=== PATIENT | female | born 1970 | race Caucasian/White ===

== ENCOUNTER 2018-07-01 21:00 | Emergency (ER) | payer OTHER ==
[2018-07-01 21:08] VITALS: BP 123/77; PULSE 92; TEMP 98; BMI 19.7
--- NOTE | 2018-07-01 21:13 | PDOC ---
Rapid Medical Evaluation Chief Complaint: Injury Time Seen by Provider: 07/01/18 21:09 Medical Evaluation: Allergies Allergy/AdvReac Type Severity Reaction Status Date / Time No Known Drug Allergies Allergy Verified 07/01/18 21:07 Pork/Porcine Containing Allergy Itching Verified 07/01/18 21:07 Products Vital Signs Temp Pulse Resp BP Pulse Ox 98.0 F 92 H 18 123/77 98 07/01/18 21:05 07/01/18 21:05 07/01/18 21:05 07/01/18 21:05 07/01/18 21:05 07/01/18 21:09 complain: Patient with pre-diabetes present with complains of right middle finger pains after finger hit by window when she tried to close window and came down on her fingers at work this afternoon. report numbness and tingling sensation in right middle finger . report taking motin 600mg for pain exam: moderate tenderness and swelling to right middle finger with ecchymosis to distal phalange of right middle finger order: x-rays of right middle finger f/u patient will proceed to ED for further evaluation Discharge Disposition - Diagnosis Finger contusion Qualifiers: Encounter type: initial encounter Finger: middle finger Damage to nail status: without damage Laterality: left Qualified Code(s): S60.032A - Contusion of left middle finger without damage to nail, initial encounter - Referrals - Patient Instructions - Post Discharge Activity
--- NOTE | 2018-07-01 22:27 | PDOC ---
History of Present Illness - General Chief Complaint: Injury Stated Complaint: INJURY Time Seen by Provider: 07/01/18 21:09 - History of Present Illness Initial Comments: 47-year-old female with history of acid reflux and prediabetes presents for evaluation of right middle finger pain. She states she was cleaning a window when the window fell down on the tip of her right middle finger she complains of localized pain to the area without any other associated symptoms. 07/01/18 22:24 Past History - Past Medical History Allergies/Adverse Reactions: Allergies Allergy/AdvReac Type Severity Reaction Status Date / Time No Known Drug Allergies Allergy Verified 07/01/18 21:07 Pork/Porcine Containing Allergy Itching Verified 07/01/18 21:07 Products Home Medications: Ambulatory Orders Naproxen [Naprosyn] 500 mg PO BID PRN #20 tablet 03/25/16 Asthma: No Cancer: No Cardiac Disorders: No COPD: No Diabetes: No HTN: No Seizures: No Thyroid Disease: No - Surgical History Abdominal Surgery: Yes (gall bladder stent) - Immunization History Td Vaccination: (unknown) Immunization Up to Date: (unknown) - Suicide/Smoking/Psychosocial Hx Smoking Status: No Smoking History: Never smoked Years of Tobacco Use: 0 Have you smoked in the past 12 months: No Number of Cigarettes Smoked Daily: 0 Cigars Per Day: 0 Hx Alcohol Use: No Drug/Substance Use Hx: No Hx Substance Use Treatment: No Review of Systems - Review of Systems Musculoskeletal: Yes: See HPI All Other Systems: Reviewed and Negative *Physical Exam - Vital Signs Last Vital Signs Temp Pulse Resp BP Pulse Ox 98.0 F 92 H 18 123/77 98 07/01/18 21:05 07/01/18 21:05 07/01/18 21:05 07/01/18 21:05 07/01/18 21:05 - Physical Exam Comments: Right middle finger is swollen at the tip with a subungual hematoma about 15% of the nail. FDS and FDP work independently. There is appropriate tenderness at the distal phalanx. There are no gross sensorimotor deficits. She is neurovascular intact. 07/01/18 22:24 Medical Decision Making - Medical Decision Making There appears to be a small kacey fracture at the right distal phalanx of the third finger. 07/01/18 22:25 *DC/Admit/Observation/Transfer Diagnosis at time of Disposition: Fracture of distal phalanx of finger of right hand Diagnosis at time of Disposition: (Ruled Out): Finger contusion - Discharge Dispostion Disposition: HOME Condition at time of disposition: Stable Decision to Admit order: No - Referrals Referrals: Lidia Mohamud [Primary Care Provider] - Jacek Dooley MD [Staff Physician] - - Patient Instructions Printed Discharge Instructions: Finger Fracture, DI for Finger Fracture Additional Instructions: Please use a splint as directed. He may remove it to wash her hands other than that you eat to keep it in place until you are seen by hand surgery. Follow-up with hand surgery in the next 1-2 days for further evaluation and treatment options. Return to the emergency room for symptoms worsening or that go unresolved. Please do not take any Motrin for pain as this will upset her stomach only take Tylenol at this point - Post Discharge Activity
== END 2018-07-01 22:37 | disposition home or self-care (01) ==
LOC: JERFT 21:00
DX: S60.032A Contusion of left middle finger without damage to nail, initial encounter (principal); W20.8XXA Other cause of strike by thrown, projected or falling object, initial encounter; Y93.89 Activity, other specified; Y92.9 Unspecified place or not applicable; Y99.0 Civilian activity done for income or pay
CPT/HCPCS: 73140-TC-RT-FY; 99281-25

== ENCOUNTER 2019-02-13 13:48 | Emergency (ER) | payer OTHER ==
[2019-02-13 14:04] VITALS: BP 134/92; PULSE 82; TEMP 98.1; BMI 19.7
[2019-02-13 15:56] LABS: PH,URINE 5.5 (5.0-8.0); URINE APPEARANCE CLEAR; URINE BILIRUBIN NEGATIVE (<2.0 mg/dL); URINE COLOR YELLOW; URINE GLUCOSE (UA) NEGATIVE (NEGATIVE); URINE KETONE NEGATIVE (NEGATIVE); URINE LEUK ESTERASE NEGATIVE (NEGATIVE); URINE NITRITE NEGATIVE (NEGATIVE); URINE PROTEIN NEGATIVE (NEGATIVE); URINE UROBILINOGEN 0.2 mg/dL (0.2-1.0)
[2019-02-13 16:33] LABS: HCG,QUALITATIVE URINE NEGATIVE
--- NOTE | 2019-02-13 16:55 | PDOC ---
History of Present Illness - General Chief Complaint: Pain Stated Complaint: LT ABD PAIN Time Seen by Provider: 02/13/19 15:18 History Source: Patient Exam Limitations: Clinical Condition - History of Present Illness Initial Comments: 02/13/19 13:28 Patient with ovarian cyst and no significant PMhx present with complains of 3 weeks h/o left pelvic pains which has been worsening in the last week. Patient report seeing hy [facility] [employer] 4 days ago for symptoms and bloodwork was done by [facility] [employer] and bedside U/S done by shaker screen operator and was told she will be contacted about results but hasn't received any follow-up call from office and was not given any medication for pain so she came to ED. Denies dysuria, urinary frequency or vaginal discharge. Report LMP 3 weeks ago. Denies N/V. Denies any other symptoms. Timing/Duration: other (3 weeks) Past History - Past Medical History Allergies/Adverse Reactions: Allergies Allergy/AdvReac Type Severity Reaction Status Date / Time No Known Drug Allergies Allergy Verified 02/13/19 14:04 Pork/Porcine Containing Allergy Itching Verified 02/13/19 14:04 Products Home Medications: Ambulatory Orders RX: Ibuprofen 800 mg PO Q8H PRN #20 tablet 02/13/19 Asthma: No Cancer: No Cardiac Disorders: No COPD: No Diabetes: No HTN: No Seizures: No Thyroid Disease: No - Surgical History Abdominal Surgery: Yes (gall bladder stent) - Immunization History Td Vaccination: (unknown) Immunization Up to Date: (unknown) - Suicide/Smoking/Psychosocial Hx Smoking Status: No Smoking History: Never smoked Years of Tobacco Use: 0 Have you smoked in the past 12 months: No Number of Cigarettes Smoked Daily: 0 Cigars Per Day: 0 Information on smoking cessation initiated: No Hx Alcohol Use: No Drug/Substance Use Hx: No Hx Substance Use Treatment: No Review of Systems - Review of Systems Able to Perform ROS?: Yes Is the patient limited Georgian proficient: No Constitutional: No: Symptoms Reported, Weakness HEENTM: No: Symptoms Reported Respiratory: No: Symptoms reported Cardiac (ROS): No: Symptoms Reported ABD/GI: Yes: Abdominal cramping (left pelvic pain). No: Symptoms Reported, Nausea, Vomiting : Yes: See HPI, Pain (left pelvic pain). No: Burning, Dysuria, Discharge, Frequency, Flank Pain, Urgency Integumentary: No: Symptoms Reported Neurological: No: Numbness, Paresthesia, Weakness All Other Systems: Reviewed and Negative *Physical Exam - Vital Signs Last Vital Signs Temp Pulse Resp BP Pulse Ox 98.1 F 82 17 134/92 100 02/13/19 14:02 02/13/19 14:02 02/13/19 14:02 02/13/19 14:02 02/13/19 14:02 - Physical Exam General Appearance: Yes: Nourished, Appropriately Dressed. No: Apparent Distress HEENT: positive: Normal ENT Inspection Neck: positive: Supple Respiratory/Chest: positive: Normal Breath Sounds. negative: Respiratory Distress, Accessory Muscle Use Cardiovascular: positive: Regular Rhythm, Regular Rate Female Pelvic Exam: positive: normal external exam, cervical os closed, normal adnexa, normal size ovaries. negative: CMT, discharge, lesions, Bartholin mass , adnexal tenderness, vaginal bleeding Gastrointestinal/Abdominal: positive: Flat. negative: Soft Musculoskeletal: positive: Normal Inspection Extremity: positive: Normal Inspection Integumentary: positive: Normal Color Neurologic: positive: Fully Oriented, Alert, Normal Response Moderate Sedation - Procedure Monitoring Vital Signs: Procedure Monitoring Vital Signs Temperature 98.1 F 02/13/19 14:02 Pulse Rate 82 02/13/19 14:02 Respiratory Rate 17 02/13/19 14:02 Blood Pressure 134/92 02/13/19 14:02 O2 Sat by Pulse Oximetry (%) 100 02/13/19 14:02 ED Treatment Course - LABORATORY CBC & Chemistry Diagram: 02/13/19 16:58 02/13/19 16:58 - ADDITIONAL ORDERS Additional order review: Laboratory Results 02/13/19 15:37 Urine Color Yellow Urine Appearance Clear Urine pH 5.5 D Ur Specific [place] 1.020 Urine Protein Negative Urine Glucose (UA) Negative Urine Ketones Negative Urine Blood Negative Urine Nitrite Negative Urine Bilirubin Negative Urine Urobilinogen 0.2 Ur Leukocyte Esterase Negative Urine WBC (Auto) No Result Required. Urine RBC (Auto) No Result Required. Urine Casts (Auto) No Result Required. U Pathogenic Cast Auto No Result Required. U Epithel Cells (Auto) No Result Required. U Sm Round Cell (Auto) No Result Required. Urine Crystals (Auto) No Result Required. Urine Bacteria (Auto) No Result Required. Urine Yeast (Auto) No Result Required. Urine HCG, Qual Negative - RADIOLOGY Radiology Studies Ordered: Category Date Time Status PELVIC / BLADDER US [US] Stat Ultrasound 02/13/19 16:52 Ordered Medical Decision Making - Medical Decision Making 02/13/19 13:28 Patient with ovarian cyst and no significant PMhx present with complains of 3 weeks h/o left pelvic pains which has been worsening in the last week. Patient report seeing hy [facility] [employer] 4 days ago for symptoms and bloodwork was done by [facility] [employer] and bedside U/S done by shaker screen operator and was told she will be contacted about results but hasn't received any follow-up call from office and was not given any medication for pain so she came to ED. Denies dysuria, urinary frequency or vaginal discharge. Report LMP 3 weeks ago. Denies N/V. Denies any other symptoms.. Clinical exam significant for mild left pelvic/LLQ pain without guarding or rebound. no vaginal discharge or visible lesions in vaginal vault. no CMT. Called made to Patient [facility] [employer] Dr. Burgos who was not in the office and report she does not recall details of patient visit and does not recall patient lab result and unable to look at labs as she is out of the office. CBC, CMP,UA,UC sent. urine hcg negative. Pelvic US shows small left cervical nabothian cyst otherwise normal exam. Patient given motrin for pain. 02/13/19 20:57 CBC,CMP,Urine lab unremarkable . Patient stable for discharge on ibuprofen as needed for pain with [facility] [employer] follow-up *DC/Admit/Observation/Transfer Diagnosis at time of Disposition: Pain in joint involving left pelvic region and thigh Ovarian cyst Qualifiers: Laterality: left Qualified Code(s): N83.202 - Unspecified ovarian cyst, left side - Discharge Dispostion Disposition: HOME Condition at time of disposition: Stable Decision to Admit order: No - Prescriptions Prescriptions: RX: Ibuprofen 800 mg PO Q8H PRN #20 tablet PRN Reason: pain - Referrals Referrals: Korey Hanna MD [Staff Physician] - - Patient Instructions Printed Discharge Instructions: DI for Ovarian Cyst Additional Instructions: Your labs and ultrasound was normal. Your symptoms likely from cyst and inflammations. Take prescribed medications as needed for pain. Follow-up with [facility] [employer] - Post Discharge Activity
[2019-02-13 17:50] LABS: BASO % 0.5 % (0-2.0); EOS % 0.6 % (0-4.5); HEMATOCRIT 37.2 % (32.4-45.2); HEMOGLOBIN 13.1 GM/dL (10.7-15.3); LYMPH % 40.6 % (8-40); MCH 31.7 pg (25.7-33.7); MCHC 35.2 g/dl (32.0-36.0); MEAN CELL VOLUME 90.3 fl (80-96); MEAN PLT VOLUME 10.1 fl (7.5-11.1); MONO % 6.2 % (3.8-10.2); NEUT % 52.1 % (42.8-82.8); PLATELET COUNT 193 K/MM3 (134-434); RBC 4.12 M/mm3 (3.60-5.2); RDW 13.6 % (11.6-15.6); WHITE BLOOD COUNT 5.5 K/mm3 (4.0-10.0)
[2019-02-13 18:10] LABS: ALK PHOS 53 U/L (45-117); ANION GAP 6 MMOL/L (8-16); BILIRUBIN,TOTAL 0.4 mg/dL (0.2-1); BLOOD UREA NITROGEN 12 mg/dL (7-18); CALCIUM 9.1 mg/dL (8.5-10.1); CHLORIDE 105 mmol/L (98-107); CO2 25 mmol/L (21-32); CREATININE 0.5 mg/dL (0.55-1.3); GLUCOSE,RANDOM 91 mg/dL (74-106); POTASSIUM 3.9 mmol/L (3.5-5.1); SGOT/AST 15 U/L (15-37); SGPT/ALT 20 U/L (13-61); SODIUM 136 mmol/L (136-145); TOT PROT 7.6 g/dl (6.4-8.2)
[2019-02-13] MEDS ORDERED: IBUPROFEN 400 MG TABLET (FP) PO ONE ×2 (19:00→19:03)
== END 2019-02-13 19:04 | disposition home or self-care (01) ==
LOC: JER 13:48
DX: N83.202 Unspecified ovarian cyst, left side (principal); Z96.89 Presence of other specified functional implants
CPT/HCPCS: 36415; 76856-TC; 80053; 81003; 84703; 85025; 86850; 86900; 86901; 87086; 99281-25

== ENCOUNTER 2022-06-04 05:31 | Emergency (ER) | payer OTHER ==
[2022-06-04 06:52] VITALS: BP 135/89; PULSE 70; TEMP 97.8; BMI 24.7
[2022-06-04 08:20] LABS: BASO % 0.5 % (0-2.0); EOS % 1.6 % (0-4.5); HEMATOCRIT 38.5 % (32.4-45.2); HEMOGLOBIN 13.3 GM/dL (10.7-15.3); LYMPH % 23.7 % (8-40); MCH 30.7 pg (25.7-33.7); MCHC 34.6 g/dl (32.0-36.0); MEAN CELL VOLUME 88.7 fl (80-96); MEAN PLT VOLUME 9.9 fl (7.5-11.1); NEUT % 67.2 % (42.8-82.8); PLATELET COUNT 226 10^3/uL (134-434); RBC 4.34 M/mm3 (3.60-5.2); RDW 13.9 % (11.6-15.6)
[2022-06-04 08:33] LABS: CALCIUM 8.7 mg/dL (8.5-10.1)
[2022-06-04 08:34] LABS: ALBUMIN 3.8 g/dl (3.4-5.0); BLOOD UREA NITROGEN 11.6 mg/dL (7-18)
[2022-06-04 08:37] LABS: CREATININE 0.7 mg/dL (0.55-1.3)
[2022-06-04 08:38] LABS: BILIRUBIN,TOTAL 0.5 mg/dL (0.2-1); TOT PROT 7.5 g/dl (6.4-8.2)
== END 2022-06-04 11:54 | disposition home or self-care (01) ==
LOC: JER 05:31
DX: R20.2 Paresthesia of skin (principal)
CPT/HCPCS: 36415; 70450-TC; 72125-TC; 80053; 84443; 85025; 93005; 93010; 99284-25